=== PATIENT | male | born 1965 ===

== ENCOUNTER 2019-05-04 09:02 | Inpatient (IN) ==
[2019-05-04] MEDS ORDERED: NS 1,000 ML IV ONE (09:24)
[2019-05-04] MEDS ORDERED: PROTONIX IV ONE (09:24)
[2019-05-04] MEDS ORDERED: DILAUDID IV PRN (09:24)
[2019-05-04] MEDS ORDERED: ZOFRAN IV ONE (09:24)
[2019-05-04] MEDS ORDERED: NS 1,000 ML IV SCH (09:30)
--- NOTE | 2019-05-04 09:32 | PROVIDER DOCUMENTATION ---
HPI-Abdominal Pain/GI Problem - General Chief Complaint: Abdominal Pain Stated Complaint: ABD PAIN Time Seen by Provider: 05/04/19 09:23 Source: patient, family Unable to obtain history due to:: other (hx difficult, pt keeps yelling "I need something for pain!") Allergies/Adverse Reactions: Patient Allergies Allergy/AdvReac Type Severity Reaction Status Date / Time ibuprofen AdvReac SWELLING Verified 05/04/19 09:24 Home Medications: Home Medication List Medication Instructions Recorded Confirmed Last Taken Type Famotidine [Pepcid] 20 mg PO BID #60 tab 01/17/19 Unknown Rx Pantoprazole [Protonix] 40 mg PO DAILY@0700 #30 tab 01/17/19 Unknown Rx - History of Present Illness-ABD Nature of Presenting Problems: awoke this am with sharp periumbilical pain, constant, non radiating. Nothing makes better nor worse. No N/V/change in BM Review of Systems - Adult - REVIEW OF SYSTEMS - ADULT Constitutional: reports: no symptoms reported Eyes: reports: no symptoms reported Ears, Nose, Mouth & Throat: reports: no symptoms reported Cardiovascular: reports: no symptoms reported Respiratory: reports: no symptoms reported Gastrointestinal: reports: see HPI Genitourinary: reports: no symptoms reported Musculoskeletal: reports: no symptoms reported Integumentary: reports: no symptoms reported Neurological: reports: no symptoms reported Psychiatric: reports: no symptoms reported Endocrine: reports: no symptoms reported Hematologic/Lymphatic: reports: no symptoms reported Allergic/Immunologic: reports: no symptoms reported Past History - Adult - PAST MEDICAL HISTORY-ADULT Review of Records: reports: Medications Reviewed Major Childhood Illnesses: reports: denies history Cardiovascular: reports: HTN Respiratory: reports: denies history Gastrointestinal: reports: denies history Genitourinary: reports: denies history Musculoskeletal: reports: denies history Neurological: reports: denies history Psychiatric: reports: denies history Endocrine/Immune: reports: denies history - PRIOR SURGERIES/PROCEDURES Surgical/Procedure History: reports: appendectomy Physical Exam-General - PHYSICAL EXAM-ADULT Initial Vital Signs Reviewed: Yes - CONSTITUTIONAL General Appearance: alert, severe distress - EYES Eyes: PERRL/EOMI, pink conjunctivae - HEAD, EARS, NOSE, MOUTH & THROAT HENMT: normocephalic/atraumatic, moist mucous membranes, normal ENT inspection, pharynx normal - NECK Neck: full range of motion, supple - RESPIRATORY Respiratory: lungs clear, normal breath sounds, no pleuratic chest pain, no respiratory distress, no accessory muscle use - CARDIOVASCULAR Cardiovascular: regular rate, rhythm, no edema, no gallop - GASTROINTESTINAL (ABDOMEN) Abdominal Exam: normal bowel sounds, soft, tenderness (diffuse, ? 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, grossly normal, no motor/sensory deficits - PSYCHIATRIC Psych/Mental Status: normal thought content, normal thought process, oriented x 3, other (moaning, yelling, "just give me something for pain!", "Just make the pain go away!") Progress - PLAN OF CARE/RESULTS Progress/Plan/Lab Results: Vital Signs - 8 hr 05/04/19 09:07 Temperature 97.9 F Pulse Rate 79 Respiratory Rate 18 Blood Pressure 98/52 O2 Sat by Pulse Oximetry 99 Orders Category Date Time Status ALCOHOL BLOOD Stat Lab 05/04/19 09:24 Uncollected AMYLASE [CHEM] Stat Lab 05/04/19 09:24 Uncollected CBC WITH DIFF [HEME] Stat Lab 05/04/19 09:24 Uncollected COMPREHENSIVE METABOLIC PANEL [CHEM] Stat Lab 05/04/19 09:24 Uncollected LIPASE [CHEM] Stat Lab 05/04/19 09:24 Uncollected URINALYSIS W/POSS RFLX CULT [URINALYSIS] Stat Lab 05/04/19 09:23 Uncollected 0.9% Sodium Chloride Inj [Ns] 1,000 ml Med 05/04/19 09:30 Ordered IV 200 mls/hr Hydromorphone [Dilaudid] Med 05/04/19 09:24 Ordered 2 mg IV Q3H PRN PRN Ns 1000 ml IV Bolus X1 Med 05/04/19 09:24 Ordered 0.9% Sodium Chloride Inj [Ns] 1,000 ml IV 999 mls/hr Ondansetron [Zofran] Med 05/04/19 09:24 Once 8 mg IV NOW ONE Pantoprazole [Protonix] Med 05/04/19 09:24 Once 40 mg IV NOW ONE Sodium Chloride 0.9% Med 05/04/19 09:24 Once 10 ml INJ NOW ONE CT non-operable here, will transfer to [place] for CT Accessed in [facility] Aware, not found Result Diagrams: 05/04/19 09:20 05/04/19 09:20 - EKG 1 Time of EKG reading by physician:: 10:05 EKG Read and Signed by:: Geronimo Johnson EKG Interpretation (*Must complete 3 of following elements*): Normal Rate: 70 Rhythm: NSR - CT/MRI 1 CT Study: Abdomen, Pelvis Impression: Abnormal CT Results: free air, free fluid - CONSULTS/PCP/HOSPITALIST Notification #1 *Consult/PCP/Hospitalist*: Bart Time Discussed: 11:58 Departure - Departure Date of Disposition Decision: 05/04/19 Time of Disposition Decision: 12:02 DIAGNOSIS: Perforated duodenal bulb ulcer Disposition: ADMITTED INPATIENT 09 Certified Medical Emergency: Emergent Condition: Stable Referrals and Follow-Ups: None,PCP [Primary Care Provider] - - Critical Care Note This patient required my direct & personal management of CC.: No Attestation - Physician/ LESLIE Attestation Patient care was provided by Advanced Practice Provider:: No The physician spent face to face time with patient:: Yes Advanced Practice Provider documentation review:: Supervising physician onsite and consulted in the evaluation and care of this patient. The physician did have a face to face encounter with the patient.
[2019-05-04] MEDS: SODIUM CHLORIDE 0.9% INJ ONE (09:42)
[2019-05-04 09:48] LABS: BASO# 0.01 X1000 (0.0-0.2); BASO% 0.1 % (0.0-0.8); EOS# 0.07 X1000 (0.0-0.7); EOS% 0.8 % (0.0-10.0); HEMATOCRIT 42.4 % (42.0-52.0); HEMOGLOBIN 14.4 g/dL (14.0-18.0); LYMPH# 1.88 X1000 (1.2-3.4); LYMPH% 20.9 % (20.5-51.1); MCH 31.2 PG (27-31); MONO% 7.8 % (1.7-9.3); MPV 9.8 FL (7.4-10.4); NEUT# 6.32 X1000 (1.4-6.5); NEUT% 70.4 % (42.2-75.2); PLT 261 X1000 (130-400); RBC 4.61 XMIL (4.7-6.1); RDW 13.3 % (11.5-14.5); WBC 8.98 X1000 (4.8-10.8)
[2019-05-04] MEDS ORDERED: DILAUDID IV ONE (09:52)
[2019-05-04 10:05] LABS: AGAP 9; ALB/GLOB RATIO 1.4; ALBUMIN 3.8 g/dL (3.5-5.0); ALKALINE PHOSPHATASE 50 U/L (32-122); AMYLASE 123 U/L (20-200); BUN 8 mg/dL (8-22); CALCIUM 8.9 mg/dL (8.8-10.2); CHLORIDE 99 mmol/L (98-107); COSMO 270; CREATININE 0.9 mg/dL (0.7-1.2); GLUCOSE 163 mg/dL (70-104); GOT 23 U/L (10-34); GPT 16 U/L (10-44); LIPASE 66 U/L (13-60); POTASSIUM 3.9 mmol/L (3.5-5.1); SODIUM 134 mmol/L (136-145); TCO2 26 mmol/L (25-35); TOTAL BILIRUBIN 0.35 mg/dL (0.20-1.00); TOTAL PROTEIN 6.6 g/dL (6.3-8.3)
--- NOTE | 2019-05-04 11:40 | EKG Report ---
Test Performed on : 05/04/2019 10:01:26 AM Test Reason : arm pain Blood Pressure : / mmHG Vent. Rate : 070 BPM Atrial Rate : 070 BPM P-R Int : 154 ms QRS Dur : 078 ms QT Int : 438 ms P-R-T Axes : 070 050 036 degrees QTc Int : 473 ms Normal sinus rhythm. Normal ECG No previous ECGs available Unconfirmed Result
[2019-05-04] MEDS ORDERED: FENTANYL ONE (12:43)
[2019-05-04] MEDS ORDERED: DIPRIVAN 1% ONE (12:43)
[2019-05-04] MEDS ORDERED: ZOSYN 3.375 GM in NS 50 ML IV SCH (12:45)
[2019-05-04] MEDS ORDERED: ALBUMIN 25% ONE (12:46)
[2019-05-04] MEDS ORDERED: LR 1,000 ML ONE ×2 (13:52→15:34)
--- NOTE | 2019-05-04 14:26 | HISTORY AND PHYSICAL ---
DATE: 05/04/2019 CHIEF COMPLAINT: Abdominal pain. REASON FOR CONSULTATION: Perforated viscus. HISTORY OF PRESENT ILLNESS: This is a 53-year-old gentleman who developed acute onset of severe abdominal pain earlier today. He denies any preceding symptoms. He came to the ER where CT scan was obtained that showed a free air and free fluid within the abdomen concerning for perforated viscus, possible perforated ulcer. MEDICAL HISTORY: He denies any cardiopulmonary, hepatitis, or infectious disease. SURGICAL HISTORY: He has had a hernia repair. SOCIAL HISTORY: He does smoke daily. Drinks alcohol regularly. He works in construction. FAMILY HISTORY: Reviewed, noncontributory. REVIEW OF SYSTEMS: Ten point negative review of systems including no GI bleeding. PHYSICAL EXAMINATION: On exam, he is afebrile. Pulse in the 70s. Blood pressure 111/77, oxygen saturation 98 percent.General: He is alert and oriented, but appears in obvious discomfort. HEENT: No scleral icterus. No cervical masses. He does have poor dentition. Cardiovascular: Normal rate. Pulmonary: No increased work of breathing. Abdomen: Firm. He has involuntary guarding and rigidity consistent with peritonitis. He is nondistended. Integument: Warm and dry without jaundice. Psychiatric: Appropriate affect. Neurologic: No gross deficits. Peripheral vascular: No lower extremity edema. Lymphatic: There is no cervical or inguinal adenopathy. LABS: White count is normal today, surprisingly, hematocrit 42, platelets 261,000. Creatinine 0.9. LFTs are normal. Lipase mildly elevated at 66. I reviewed the CT scan. ASSESSMENT AND PLAN: This is a 53-year-old gentleman with peritonitis and free air, free fluid noted on CT scan, presumably perforated ulcer. He does smoke and drink. He denies any significant NSAID use however. No symptoms of GI bleed. Given this, I have recommended an emergent operation, exploratory laparotomy with all indicated procedures. We discussed the risks of bleeding, infection, possibility of bowel resection, possibility of repairing the ulcer, possibility of a colostomy, temporary or permanent and all other juany anesthetic complications. He understands all this and consents. We will start him on Zosyn and mobilize for emergent operation. cc: Maryjo Arriaga MD
[2019-05-04] MEDS ORDERED: METHYLENE BLUE 0.5% ONE (14:43)
[2019-05-04 14:48] LABS: URINE SOURCE CATH
[2019-05-04 14:55] LABS: BILIRUBIN URINE NEGATIVE (NEGATIVE); BLOOD URINE NEGATIVE (NEGATIVE); COLOR YELLOW; GLUCOSE URINE NEGATIVE (NEGATIVE); KETONE URINE NEGATIVE (NEGATIVE); LEUKOCYTES URINE NEGATIVE (NEGATIVE); NITRITE URINE NEGATIVE (NEGATIVE); PH URINE 6.5; PROTEIN URINE NEGATIVE (NEGATIVE); TURBIDITY URINE CLEAR (CLEAR); UR EPITHELIAL CELLS <10 /HPF (<10); URINE BACTERIA NEGATIVE /HPF; URINE RBC <10 /HPF (<10); URINE WBC <10 /HPF (<10); UROBILINOGEN URINE NORMAL (NORMAL)
[2019-05-04] MEDS ORDERED: ROBINUL ONE (15:00)
[2019-05-04] MEDS ORDERED: OFIRMEV 1000 MG/ISOTONIC SOLN 1,000 MG/100 ML BOTTLE ONE (15:00)
[2019-05-04] MEDS ORDERED: QUELICIN (DOSE) ONE (15:00)
[2019-05-04] MEDS ORDERED: XYLOCAINE-MPF 2% ONE (15:00)
[2019-05-04] MEDS ORDERED: ZOFRAN ONE (15:00)
[2019-05-04] MEDS ORDERED: TORADOL ONE (15:00)
[2019-05-04] MEDS ORDERED: DECADRON ONE (15:00)
[2019-05-04] MEDS ORDERED: NEO-SYNEPHRINE ONE (15:00)
[2019-05-04] MEDS ORDERED: SODIUM CHLORIDE 0.9% 10 ML ONE (15:00)
[2019-05-04] MEDS ORDERED: ZEMURON ONE (15:00)
[2019-05-04] MEDS ORDERED: NEOSTIGMINE ONE (15:01)
--- NOTE | 2019-05-04 15:48 | OPERATIVE NOTE ---
PROCEDURE DATE: 05/04/2019 POSTOP DIAGNOSIS: peritonitis. POSTOP: Perforated duodenal ulcer first portion. PROCEDURE PERFORMED: Exploratory laparotomy with Scott patch repair duodenum and duodenal biopsy. ESTIMATED BLOOD LOSS: 50 mL. SPECIMENS: Duodenal ulcer biopsy. ANESTHESIA: General. INDICATION: 53-year-old gentleman developed pain earlier today. CT scan in the ER showed free air and free fluid. OPERATIVE FINDINGS: There was bilious fluid throughout the abdomen. There was in the anterior portion of the 1st portion of the duodenum just distal to the pylorus there was a very small perforated duodenal ulcer. No evidence of neoplastic process. OPERATIVE NOTE: Risks, benefits, alternatives discussed patient, he consented to procedure, seen preoperatively, surgical site was confirmed, taken operating room placed in supine position. General anesthesia induced. He was on scheduled antibiotics. Cervantes and nasogastric tube were placed. His abdomen was prepped chlorhexidine solution after hair was removed with clippers and draped in usual fashion. After time-out made a midline incision carrying it down through the fascia with electrocautery and entered the abdomen open controlled fashion with care protect underlying small bowel. We then encountered bilious ascites. Tez wound protector was placed. We began inspecting the abdomen and the majority the fluid seemed to be in the upper quadrant. There was omentum stuck up to the duodenum, we identified a perforated duodenal ulcer. We inspected the small bowel, the colon, the stomach and the retroperitoneum. There was no evidence other perforation. At this point we mobilized the tongue of omentum, it was well vascularized but not very thick but were able to get a nice vascularized pedicle of omentum and in a Scott patch fashion repaired of the duodenal ulcer. We then placed methylene blue via the NG tube to confirm that there was no blue leaking there was not. There was no undue tension on the repair and we did not encroach upon the lumen at all. Nasogastric tube was confirmed and secured. Then copiously irrigated the abdomen several liters of fluid, suctioned out the fluid till clear. Then changed our gloves, closed the fascia with a #1 running looped PDS suture. After irrigating superficial wound we closed the skin with surgical clips, gauze, Medipore tape was applied. We also placed a Pedro drain adjacent to the repair tracking down into the hepatophrenic recess and secured with a nylon suture. Tolerated it well no complication. cc: Maryjo Arriaga MD [facility]
--- NOTE | 2019-05-04 15:50 | Diag Imaging Result Doc PS360 ---
EXAM: CT ABD/PELVIS W/IV CONT ONLY - 05/04/2019 HISTORY: Abd pain TECHNIQUE: CT abdomen/pelvis with intravenous contrast COMPARISON: None. FINDINGS: There is free intraperitoneal air, primarily at the upper abdomen. There is questionable air in the proximal duodenal ulcer, and the wick of the proximal duodenum appear mildly thickened. There is a medium amount of free fluid. Retained fluid in the stomach. There is no discrete diverticulitis identified. There are no substantial abnormalities of the liver, spleen, adrenal glands, or pancreas identified. There are no calcified gallstones seen. The bilateral kidneys enhance homogeneously except for a small cyst at the lower left kidney. There is no hydronephrosis. There are no substantially enlarged lymph nodes identified. IMPRESSION: Free intraperitoneal air, primarily at the upper abdomen. Medium amount of free fluid. While the etiology for this is difficult to definitively determine, perforated duodenal ulcer is a primary consideration. This report was discussed with Dr. Johnson on 05/04/2019 at 11:57 AM and was readback. Electronically signed by Piyush Haynes 05/04/2019 3:48 PM
[2019-05-04] MEDS: DILAUDID ONE ×2 (16:00→16:05)
[2019-05-04] MEDS ORDERED: PROTONIX 80 MG in NS 80 ML IV ONE (16:33)
[2019-05-04] MEDS ORDERED: ZOFRAN IV PRN (16:33)
[2019-05-04] MEDS: OFIRMEV 1000 MG/ISOTONIC SOLN 1,000 MG/100 ML BOTTLE IV SCH ×2 (17:51→22:55)
[2019-05-04] MEDS: LR 1,000 ML IV SCH ×2 (17:52→22:56)
[2019-05-04] MEDS: PROTONIX 80 MG in NS 80 ML IV SCH (22:32)
[2019-05-04] MEDS: PERIDEX MT SCH (22:33)
[2019-05-04] MEDS: ZOSYN 2.25 GM in NS 50 ML IV SCH (22:55)
[2019-05-05] MEDS: DILAUDID ONE (00:02)
[2019-05-05] MEDS: LR 1,000 ML IV SCH ×3 (03:47→17:38)
[2019-05-05] MEDS: OFIRMEV 1000 MG/ISOTONIC SOLN 1,000 MG/100 ML BOTTLE IV SCH ×2 (05:26→11:14)
[2019-05-05] MEDS: ZOSYN 2.25 GM in NS 50 ML IV SCH ×4 (05:26→22:39)
[2019-05-05 06:37] LABS: BASO# 0.01 X1000 (0.0-0.2); BASO% 0.1 % (0.0-0.8); EOS# 0.01 X1000 (0.0-0.7); EOS% 0.1 % (0.0-10.0); HEMATOCRIT 37.8 % (42.0-52.0); HEMOGLOBIN 12.9 g/dL (14.0-18.0); LYMPH# 1.26 X1000 (1.2-3.4); MCH 31.9 PG (27-31); MCHC 34.1 g/dL (33-37); MCV 93.3 FL (81-99); MONO# 1.17 X1000 (0.11-0.59); MONO% 8.4 % (1.7-9.3); MPV 9.8 FL (7.4-10.4); NEUT# 11.48 X1000 (1.4-6.5); NEUT% 82.4 % (42.2-75.2); PLT 223 X1000 (130-400); RBC 4.05 XMIL (4.7-6.1); RDW 13.8 % (11.5-14.5); WBC 13.93 X1000 (4.8-10.8)
[2019-05-05 07:04] LABS: AGAP 11; BUN 13 mg/dL (8-22); CALCIUM 8.4 mg/dL (8.8-10.2); CHLORIDE 102 mmol/L (98-107); COSMO 272; CREATININE 0.9 mg/dL (0.7-1.2); GLUCOSE 96 mg/dL (70-104); POTASSIUM 4.3 mmol/L (3.5-5.1); SODIUM 136 mmol/L (136-145); TCO2 23 mmol/L (25-35)
[2019-05-05] MEDS: LOVENOX SUBQ SCH (09:00)
[2019-05-05] MEDS: PERIDEX MT SCH ×2 (09:00→22:39)
[2019-05-05] MEDS: PROTONIX 80 MG in NS 80 ML IV SCH (09:00)
[2019-05-05] MEDS ORDERED: PNEUMOVAX 23 IM ONE (10:00)
[2019-05-05 10:34] LABS: URINE SOURCE CATH
[2019-05-05 10:39] LABS: BILIRUBIN URINE NEGATIVE (NEGATIVE); BLOOD URINE TRACE (NEGATIVE); COLOR YELLOW; GLUCOSE URINE NEGATIVE (NEGATIVE); KETONE URINE NEGATIVE (NEGATIVE); LEUKOCYTES URINE NEGATIVE (NEGATIVE); NITRITE URINE NEGATIVE (NEGATIVE); PH URINE 6.5; PROTEIN URINE TRACE mg/dL (NEGATIVE); SP GRAVITY URINE 1.039; TURBIDITY URINE CLEAR (CLEAR); UROBILINOGEN URINE NORMAL (NORMAL)
[2019-05-05 10:44] LABS: UR EPITHELIAL CELLS <10 /HPF (<10); URINE BACTERIA NEGATIVE /HPF; URINE RBC <10 /HPF (<10); URINE WBC <10 /HPF (<10)
[2019-05-05] MEDS ORDERED: FLU VACCINE IM ONE (11:16)
[2019-05-05] MEDS: DILAUDID IV PRN ×3 (12:10→22:39)
--- NOTE | 2019-05-05 14:52 | GENERAL SURGERY PROGRESS NOTE ---
DATE: 05/05/2019 OBJECTIVE: No fevers. Pulse 67, blood pressure 104/69. His abdomen is soft. Dressing is clean. STONEY drain serosanguineous. I reviewed his labs. Hematocrit is 37, white count 13. Creatinine 0.9. ASSESSMENT AND PLAN: A 53-year-old gentleman status post Scott patch repair of perforated duodenal ulcer. We will keep him nothing per oral with a nasogastric tube. On antibiotics, proton pump inhibitor, and Lovenox today. We will plan to study him tomorrow and remove his tube if no leak demonstrated. cc: Maryjo Arriaga MD
[2019-05-05] MEDS: PROTONIX IV SCH (17:46)
[2019-05-05] MEDS ORDERED: CHLORASEPTIC SPRAY MT PRN (23:36)
[2019-05-06] MEDS: ZOSYN 2.25 GM in NS 50 ML IV SCH ×4 (05:57→23:13)
[2019-05-06] MEDS: LR 1,000 ML IV SCH ×4 (05:58→23:13)
[2019-05-06] MEDS: PROTONIX IV SCH ×2 (05:58→17:14)
[2019-05-06] MEDS: PERIDEX MT SCH ×2 (08:49→20:08)
[2019-05-06] MEDS: LOVENOX SUBQ SCH (08:49)
[2019-05-06] MEDS: DILAUDID IV PRN (21:04)
--- NOTE | 2019-05-06 21:41 | GENERAL SURGERY PROGRESS NOTE ---
DATE: 05/06/2019 SUBJECTIVE: He feels okay. He is more alert. No fevers. OBJECTIVE: Pulse 89, blood pressure 120/82. NG tube is in place. Abdomen is soft. Dressing intact. STONEY drain serosanguineous, no bile. No new labs this morning. Urine output has been adequate. ASSESSMENT AND PLAN: A 53-year-old gentleman status post Scott patch repair of duodenal ulcer. Overall, he is doing well. We will keep him n.p.o. We will get a contrasted study tomorrow to evaluate for leak. He is on prophylactic Lovenox, proton pump inhibitor b.i.d., and Zosyn. He is encouraged to be out of bed. We have removed his Cervantes. cc: Maryjo Arriaga MD
[2019-05-07] MEDS: LR 1,000 ML IV SCH ×3 (03:19→15:25)
[2019-05-07] MEDS: ZOSYN 2.25 GM in NS 50 ML IV SCH ×4 (05:53→22:19)
[2019-05-07] MEDS: PROTONIX IV SCH ×2 (05:53→17:36)
--- NOTE | 2019-05-07 08:39 | Diag Imaging Result Doc PS360 ---
EXAM: GI SERIES PARTIAL 05/07/2019 HISTORY: duodenal ulcer repair TECHNIQUE: Water-soluble upper GI series, six images, two minutes nine seconds fluoroscopy time, 1954.9 cGy. COMMENT: Contrast was introduced through the patient's previously placed NG tube. No evidence of extravasation of contrast from the duodenum is demonstrated. There is no evidence of obstruction. At 15 minutes there is contrast throughout the jejunum. IMPRESSION: No evidence of contrast leakage. Electronically signed by Stephen Wylie 05/07/2019 8:37 AM
[2019-05-07] MEDS: DILAUDID IV PRN ×2 (08:45→17:46)
[2019-05-07] MEDS: LOVENOX SUBQ SCH (08:47)
[2019-05-07] MEDS: PERIDEX MT SCH ×2 (08:47→22:19)
--- NOTE | 2019-05-07 22:37 | GENERAL SURGERY PROGRESS NOTE ---
DATE: 05/07/2019 SUBJECTIVE: Feeling okay. Passing some gas. Upper GI showed no leak. He is draining serosanguineous. OBJECTIVE: On exam, his abdomen is appropriately tender. He is alert with no tachycardia. PLAN: We will continue antibiotics. We will give him clear liquids today and remove his nasogastric tube. We will keep his drain in until discharge. Otherwise, I will decrease his fluids. He is on proton pump inhibitor and Lovenox. cc: Maryjo Arriaga MD
[2019-05-08] MEDS: PROTONIX IV SCH ×2 (06:04→17:14)
[2019-05-08] MEDS: ZOSYN 2.25 GM in NS 50 ML IV SCH ×4 (06:04→22:09)
[2019-05-08] MEDS: PERIDEX MT SCH ×2 (09:00→22:10)
[2019-05-08] MEDS: LOVENOX SUBQ SCH (09:00)
[2019-05-08] MEDS ORDERED: SODIUM CHLORIDE 0.9% 10 ML ONE ×2 (09:47→14:28)
[2019-05-08] MEDS: LR 1,000 ML IV SCH (10:54)
--- NOTE | 2019-05-08 14:50 | GENERAL SURGERY PROGRESS NOTE ---
DATE: 05/08/2019 SUBJECTIVE: He had bowel function overnight. His pain continues to improve. He has had no fevers, no tachycardia. OBJECTIVE: Vital signs: Blood pressure 105/70. Abdomen: Soft. Incision is clean, dry, and intact. No cellulitis. His STONEY drain is serosanguineous without bile. LABORATORY: No new labs this morning. Urine output has been adequate. ASSESSMENT AND PLAN: A 53-year-old gentleman status post Scott patch repair of perforated duodenal ulcer. He is tolerating clear liquids. We will give him GI soft today. Decrease the IV fluids. He is on Lovenox and PPI and Zosyn. Plan to switch this to oral and maybe home tomorrow if he tolerates a soft diet. cc: Maryjo Arriaga MD
[2019-05-08] MEDS: SODIUM CHLORIDE 0.9% INJ ONE (17:14)
[2019-05-08] MEDS: DILAUDID IV PRN (22:10)
[2019-05-09] MEDS: LR 1,000 ML IV SCH ×2 (04:52→06:27)
[2019-05-09] MEDS: PROTONIX IV SCH (06:26)
[2019-05-09] MEDS: ZOSYN 2.25 GM in NS 50 ML IV SCH ×2 (06:26→11:17)
[2019-05-09] MEDS: PERIDEX MT SCH (09:00)
[2019-05-09] MEDS: LOVENOX SUBQ SCH (09:00)
[2019-05-09 15:30] VITALS: BP 103/75
--- NOTE | 2019-05-10 17:43 | DISCHARGE SUMMARY ---
ADMISSION DATE: 05/04/2019 DISCHARGE DATE: 05/09/2019 ADMITTING DIAGNOSIS: Perforated duodenal ulcer. DISCHARGE DIAGNOSIS: Perforated duodenal ulcer. PROCEDURE PERFORMED: Scott patch repair of perforated duodenal ulcer. HISTORY OF PRESENT ILLNESS: A 53-year-old gentleman who presented with diffuse abdominal pain on the , and was found to have free air consistent with perforated ulcer. HOSPITAL COURSE: He was taken to the operating room emergently on the day of his admission for above procedure. For details, please see dictated operative note. Postoperatively, he did well. His NG tube was continued. STONEY drain remained serosanguineous. He had an upper GI study on the , that showed no evidence of leak. As such, his tube was removed and he was given clear liquids and he tolerated this. He had return of bowel function, was voiding without difficulty after his Cervantes was removed on postoperative day 1. Diet was advanced and he was felt safe for discharge. He was continued on PPI even at discharge twice daily. He was on Lovenox prophylactically as well. His drain was removed on the day of his discharge. He was also continued on Zosyn during his hospital course. FOLLOWUP APPOINTMENTS: With me next week for staple removal. DISPOSITION: Home to self-care under the care of his family. DISCHARGE INSTRUCTIONS: Given in written and verbal format. MEDICATIONS: He was given Tivoli and Colace prescriptions, and given strict instructions to take PPI indefinitely for rest of his life. PATHOLOGY: Showed no evidence of malignancy. He will need a follow-up EGD. cc: Maryjo Arriaga MD
== END 2019-05-09 17:13 | disposition home or self-care (01) | DRG 329 ==
LOC: SUPCPDRO → ED 09:02 → 4N 14:27
PROVIDERS: ADMIT Surgery; ATTEND Surgery